=== PATIENT | female | born 1965 | race Caucasian/White ===

== ENCOUNTER → 2017-08-28 09:32 | Outpatient (CLI) | payer OTHER | END | disposition home or self-care (01) | LOC: LAB 09:32 | DX: I10 Essential (primary) hypertension (principal); E11.65 Type 2 diabetes mellitus with hyperglycemia; E78.00 Pure hypercholesterolemia, unspecified; E03.8 Other specified hypothyroidism; N39.0 Urinary tract infection, site not specified ==

== ENCOUNTER → 2017-08-28 | Outpatient (CLI) | payer OTHER ==
[~2017-08-28] MED LIST: ACIDOPHILUS1 EAC2 PO; AMOX1TAB12 PO; AVAPRO150 MG PO; CARAFATE1 GM PO; CEFTIN250 MG PO; DOLOGESIC CAPSU1 CAP PO; GLIPIZIDE; GLUCOTROL10 MG; HYZAAR 100-12.1 EACH; HYZAAR 100/25 T1 TAB PO; JANUMET 50-1,01 EACH; PROTONIX40 MG PO; SINGULAIR 10MG10 MG PO; SYMBICORT 16010.2 GM IH; SYNTHROID100 MCG; ZANTAC150 MG PO; ZOFRAN8 MG PO; [UNRECOGNIZED DRUG - OTHER]; [UNRECOGNIZED DRUG - OTHER] IV
== END | disposition home or self-care (01) ==
LOC: MRI 10:15
DX: M54.5 Low back pain (principal)

== ENCOUNTER 2018-07-29 22:19 | Emergency (ER) | payer OTHER ==
[~2018-07-29] VITALS: Ht 160 cm; Wt 108.9 kg
[2018-07-30] MEDS ORDERED: PYRIDIUM DS200 MG PO (06:54)
[2018-07-30] MEDS ORDERED: CEFUROXIME500 MG PO (06:54)
[2018-07-30] MEDS ORDERED: DOLOGESIC 500-1 EACH PO (06:54)
== END 2018-07-30 07:19 | disposition home or self-care (01) ==
LOC: ER 22:19
DX: K57.90 Diverticulosis of intestine, part unspecified, without perforation or abscess without bleeding (principal); N39.0 Urinary tract infection, site not specified

== ENCOUNTER 2018-08-14 13:55 | Outpatient (CLI) | payer OTHER ==
[~2018-08-14 13:55] MED LIST changes: +CEFUROXIME500 MG PO; +DOLOGESIC 500-1 EACH PO; +PYRIDIUM DS200 MG PO
== END 2018-08-14 14:01 | disposition home or self-care (01) ==
LOC: SONOGRAMA 13:55
DX: N20.0 Calculus of kidney (principal)

== ENCOUNTER 2019-01-06 12:24 | Emergency (ER) | payer OTHER ==
[~2019-01-06] VITALS: Ht 160 cm; Wt 108.9 kg
== END 2019-01-06 22:35 | disposition home or self-care (01) ==
LOC: ER 12:24
DX: N23 Unspecified renal colic (principal)

== ENCOUNTER 2019-06-06 07:54 | Outpatient (CLI) | payer OTHER | END 2019-06-06 08:09 | disposition home or self-care (01) | LOC: MAMO-SONO 07:54 | DX: Z12.31 Encounter for screening mammogram for malignant neoplasm of breast (principal); Z87.898 Personal history of other specified conditions; N63.10 Unspecified lump in the right breast, unspecified quadrant; N63.20 Unspecified lump in the left breast, unspecified quadrant ==

== ENCOUNTER 2019-06-19 10:26 | Inpatient (IN) | payer OTHER ==
[~2019-06-19] VITALS: Ht 160 cm; Wt 109.8 kg
[2019-06-19] MEDS ORDERED: AMLODIPINE-OLM1 EACH PO (10:56)
[2019-06-19] MEDS ORDERED: HORIZANT300 MG PO (10:56)
[2019-06-19] MEDS ORDERED: GLUMETZA500 MG PO (10:57)
[2019-06-19] MEDS ORDERED: OSTERA TABLET1 EACH PO (10:57)
[2019-06-19] MEDS ORDERED: ATACAND32 MG PO (10:58)
[2019-06-19] MEDS ORDERED: CRESTOR10 MG PO (10:58)
[2019-06-19] MEDS ORDERED: SYNTHROID PO (10:59)
--- NOTE | 2019-06-19 11:00 | NUR ---
PTE REFIERE DOLOR ABDOMINOPENVICO DESDE HACE DOS SHORT Y HX DIVERTICULITIS. SE OBSERVA ALERTA, ORIENTADA X3, CONCIENTE. SE TRASLADA AL AREA DE OBSERVACION.
--- NOTE | 2019-06-19 13:48 | NUR ---
SE RECIBE PTE FEMENIA DE 53 YRS ALERTA CONCIENTE Y TRANQUILA EN COMPANIA DE FAMILIAR. PTE ES EVALUADA POR EL QUIEN ORDENA TRATAMIENTO LA CUAL; SE EJECUTA .S E MANTIENE BAJO OBSERACION
--- NOTE | 2019-06-19 14:59 | NUR ---
SE RECIBE PACIENTE ALERTA Y ORIENTADA EN L[place] BERNIE ESFERAS. SE OBSERVA VENOPUNCION LESLEY DE EDEMA Y ENROJECIMIENTO BAJANDO 0.9%NSS AT 100ML/HR. PACIENTE CON BARANDAS ELEVADAS. SE ORIENTA SOBRE CT SCAN PENDIENTE LA MISMA VERBALIZA ENTENDER. SIGNOS VITALES TOMADOS POR MR.COLON
[2019-06-24] MEDS ORDERED: PROBIOTIC ACID1.5 MG PO (16:38)
[2019-06-24] MEDS ORDERED: METRONIDAZOLE500 MG PO (16:38)
[2019-06-24] MEDS ORDERED: PROMETHAZINE W473 ML PO (16:40)
== END 2019-06-24 17:45 | disposition home or self-care (01) | DRG 392 ==
LOC: ER 10:26 → MEDJ 16:56 → SEC-K 16:56 → MEDJ 17:34
PROVIDERS: ADMIT Internal Medicine
PROC: 3E0F7GC Introduction of Other Therapeutic Substance into Respiratory Tract, Via Natural or Artificial Opening (ICD-10-PCS; principal; 2019-06-20)
PROC: 02HV33Z Insertion of Infusion Device into Superior Vena Cava, Percutaneous Approach (ICD-10-PCS; 2019-06-21)
DX: K57.32 Diverticulitis of large intestine without perforation or abscess without bleeding (principal); J44.1 Chronic obstructive pulmonary disease with (acute) exacerbation; J45.41 Moderate persistent asthma with (acute) exacerbation; I11.9 Hypertensive heart disease without heart failure; I87.2 Venous insufficiency (chronic) (peripheral); E66.09 Other obesity due to excess calories; E11.65 Type 2 diabetes mellitus with hyperglycemia; Z79.4 Long term (current) use of insulin

== ENCOUNTER 2019-09-04 10:34 | Inpatient (IN) | payer OTHER ==
[~2019-09-04] VITALS: Ht 162.6 cm; Wt 90.7 kg
[~2019-09-04 10:34] MED LIST changes: +AMLODIPINE-OLM1 EACH PO; +ATACAND32 MG PO; +CRESTOR10 MG PO; +GLUMETZA500 MG PO; +HORIZANT300 MG PO; +METRONIDAZOLE500 MG PO; +OSTERA TABLET1 EACH PO; +PROBIOTIC ACID1.5 MG PO; +PROMETHAZINE W473 ML PO; +SYNTHROID PO
[2019-09-04] MEDS ORDERED: METFORMIN HCL750 MG PO (11:11)
[2019-09-05] MEDS ORDERED: LEVO-T112 MCG PO (07:54)
[2019-09-05] MEDS ORDERED: AMLODIPINE BESY10 MG PO (07:55)
== END 2019-09-11 18:29 | disposition home or self-care (01) | DRG 193 ==
LOC: ER 10:34 → MEDJ 17:11 → SURH 09-11 13:31
PROVIDERS: ADMIT Internal Medicine
PROC: 3E0F7GC Introduction of Other Therapeutic Substance into Respiratory Tract, Via Natural or Artificial Opening (ICD-10-PCS; principal; 2019-09-04)
PROC: 4A033R1 Measurement of Arterial Saturation, Peripheral, Percutaneous Approach (ICD-10-PCS; 2019-09-04)
PROC: 4A12X4Z Monitoring of Cardiac Electrical Activity, External Approach (ICD-10-PCS; 2019-09-05)
PROC: CB2YYZZ Tomographic (Tomo) Nuclear Medicine Imaging of Respiratory System using Other Radionuclide (ICD-10-PCS; 2019-09-06)
PROC: 8E0ZXY6 Isolation (ICD-10-PCS; 2019-09-11)
DX: J15.7 Pneumonia due to Mycoplasma pneumoniae (principal); E11.00 Type 2 diabetes mellitus with hyperosmolarity without nonketotic hyperglycemic-hyperosmolar coma (NKHHC); J45.41 Moderate persistent asthma with (acute) exacerbation; N39.0 Urinary tract infection, site not specified; M79.7 Fibromyalgia; I10 Essential (primary) hypertension; E78.5 Hyperlipidemia, unspecified; K76.0 Fatty (change of) liver, not elsewhere classified; E66.9 Obesity, unspecified; Z03.818 Encounter for observation for suspected exposure to other biological agents ruled out

== ENCOUNTER 2021-05-01 09:53 | Emergency (ER) | payer OTHER ==
[~2021-05-01] VITALS: Ht 160 cm; Wt 99.8 kg
[~2021-05-01 09:53] MED LIST changes: +AMLODIPINE BESY10 MG PO; +LEVO-T112 MCG PO; +METFORMIN HCL750 MG PO
[2021-05-01] MEDS ORDERED: GLIMEPIRIDE4 MG (10:11)
[2021-05-01] MEDS ORDERED: SYNTHROID137 MCG PO (10:12)
[2021-05-01] MEDS ORDERED: NORFLEX100MG PO (12:41)
== END 2021-05-01 13:17 | disposition home or self-care (01) ==
LOC: ER 09:53
DX: M25.561 Pain in right knee (principal)

== ENCOUNTER 2021-06-14 03:17 | Inpatient (IN) | payer OTHER ==
[~2021-06-14] VITALS: Ht 121.9 cm; Wt 5.0 kg
[~2021-06-14 03:17] MED LIST changes: +GLIMEPIRIDE4 MG; +NORFLEX100MG PO; +SYNTHROID137 MCG PO
[2021-06-14] MEDS ORDERED: TRULICITY1.5 MG/0.5 (03:25)
[2021-06-21] MEDS ORDERED: LANTUS SOL100 UNIT/1 SUBCUTANEO (08:57)
[2021-06-21] MEDS ORDERED: INSULIN PEN NE1 EAC1 SUBCUTANEO (08:58)
[2021-06-21] MEDS ORDERED: ATACAND32 MG PO (08:59)
[2021-06-21] MEDS ORDERED: PROTONIX40 MG PO (09:00)
[2021-06-21] MEDS ORDERED: INTESTINEX680 M1 PO (09:00)
[2021-06-21] MEDS ORDERED: PEPCID AC20 MG PO (09:01)
== END 2021-06-21 09:32 | disposition home or self-care (01) | DRG 440 ==
LOC: ER 03:17 → MEDI 09:25
PROVIDERS: ADMIT Internal Medicine; ATTEND Internal Medicine
PROC: 0DB68ZX Excision of Stomach, Via Natural or Artificial Opening Endoscopic, Diagnostic (ICD-10-PCS; principal; 2021-06-18)
PROC: 02HV33Z Insertion of Infusion Device into Superior Vena Cava, Percutaneous Approach (ICD-10-PCS; 2021-06-18)
PROC: BW21ZZZ Computerized Tomography (CT Scan) of Abdomen and Pelvis (ICD-10-PCS; 2021-06-18)
PROC: BF37ZZZ Magnetic Resonance Imaging (MRI) of Pancreas (ICD-10-PCS; 2021-06-18)
DX: K85.80 Other acute pancreatitis without necrosis or infection (principal); K31.7 Polyp of stomach and duodenum; R10.13 Epigastric pain; K29.60 Other gastritis without bleeding; D72.828 Other elevated white blood cell count; I11.9 Hypertensive heart disease without heart failure; E03.8 Other specified hypothyroidism; J45.998 Other asthma; E11.65 Type 2 diabetes mellitus with hyperglycemia; Z79.4 Long term (current) use of insulin; Z20.822 Contact with and (suspected) exposure to COVID-19

== ENCOUNTER 2021-07-08 14:20 | Emergency (ER) | payer OTHER ==
[~2021-07-08] VITALS: Ht 152.4 cm; Wt 103.4 kg
[~2021-07-08 14:20] MED LIST changes: +INSULIN PEN NE1 EAC1 SUBCUTANEO; +INTESTINEX680 M1 PO; +LANTUS SOL100 UNIT/1 SUBCUTANEO; +PEPCID AC20 MG PO; +TRULICITY1.5 MG/0.5
[2021-07-08] MEDS ORDERED: PRILOSEC10 MG (14:34)
[2021-07-08] MEDS ORDERED: HUMULIN 70100 UNIT/2 IJ (14:35)
== END 2021-07-08 20:02 | disposition home or self-care (01) ==
LOC: ER 14:20
DX: K57.92 Diverticulitis of intestine, part unspecified, without perforation or abscess without bleeding (principal); E11.9 Type 2 diabetes mellitus without complications; Z79.4 Long term (current) use of insulin; I10 Essential (primary) hypertension

== ENCOUNTER 2022-07-07 15:29 | Emergency (ER) | payer OTHER ==
[~2022-07-07] VITALS: Ht 160 cm; Wt 109.8 kg
[~2022-07-07 15:29] MED LIST changes: +HUMULIN 70100 UNIT/2 IJ; +PRILOSEC10 MG
[2022-07-07] MEDS ORDERED: DOLOGESIC 500-1 EACH PO (18:49)
== END 2022-07-07 19:30 | disposition home or self-care (01) ==
LOC: ER 15:29
DX: S93.402A Sprain of unspecified ligament of left ankle, initial encounter (principal); W19.XXXA Unspecified fall, initial encounter; Y93.01 Activity, walking, marching and hiking; Y92.9 Unspecified place or not applicable; Z88.6 Allergy status to analgesic agent; Z88.8 Allergy status to other drugs, medicaments and biological substances

== ENCOUNTER 2022-12-01 15:26 | Emergency (ER) | payer OTHER ==
[~2022-12-01] VITALS: Ht 160 cm; Wt 116.6 kg
[2022-12-01] MEDS ORDERED: PEPCID20 MG PO (23:12)
[2022-12-01] MEDS ORDERED: ZOFRAN8 MG PO (23:12)
== END 2022-12-01 23:58 | disposition home or self-care (01) ==
LOC: ER 15:26
DX: R10.84 Generalized abdominal pain (principal); K57.30 Diverticulosis of large intestine without perforation or abscess without bleeding; K76.0 Fatty (change of) liver, not elsewhere classified; Z88.6 Allergy status to analgesic agent; Z88.8 Allergy status to other drugs, medicaments and biological substances

== ENCOUNTER 2022-12-06 06:21 | Emergency (ER) | payer OTHER ==
[~2022-12-06] VITALS: Ht 160 cm; Wt 116.6 kg
[~2022-12-06 06:21] MED LIST changes: +PEPCID20 MG PO
[2022-12-06] MEDS ORDERED: METFORMIN HCL1000 M3 PO (06:37)
[2022-12-06] MEDS ORDERED: CARDURA8 MG PO (06:41)
[2022-12-06] MEDS ORDERED: ATACAND32 MG PO (06:42)
== END 2022-12-06 08:00 | disposition home or self-care (01) ==
LOC: ER 06:21
DX: J02.9 Acute pharyngitis, unspecified (principal); Z88.6 Allergy status to analgesic agent

== ENCOUNTER 2023-02-26 22:34 | Emergency (ER) | payer OTHER ==
[~2023-02-26] VITALS: Ht 160 cm; Wt 115.7 kg
[~2023-02-26 22:34] MED LIST changes: +CARDURA8 MG PO; +METFORMIN HCL1000 M3 PO
[2023-02-27 01:38] LABS: ABG PH 7.425 (7.35-7.45); ABG PO2 90.1 mmHg (80-100); ABG pCO2 41.2 mmHg (35-45); SaO2 97.2 %
[2023-02-27 01:39] LABS: BASE EXCESS 1.9 mmol/l; BICARBONATE 26.4 mmol/l (23-25); Tco2 27.7 mmol/l; allen test SATISFACTORY; o2 32 %; puncture site RADIAL RIGHT
[2023-02-27 02:31] LABS: HEMOGLOBIN 12.4 g/dL (12.0-15.00); MEAN CELL VOLUME 76.9 fL (80.00-100.00); MEAN CORPUSCULAR HEMOGLOBIN 25.1 pg (27.00-32.0); MEAN CORPUSCULAR HGB CONC 32.6 g/dl (32.0-36.0); PLATELET COUNT 270 K/uL (150-450); RED BLOOD COUNT 4.95 M/uL (4.00-6.00); RED CELL DISTRIBUTION WIDTH 15.8 % (11.5-14.5)
[2023-02-27 02:32] LABS: CALCIUM 9.1 mg/dL (8.5-10.1); CREATININE SERUM 0.84 mg/dL (0.55-1.02); GFR 70.39; POTASSIUM 3.95 mEq/L (3.5-5.1)
[2023-02-27] MEDS ORDERED: SYMBICORT 16010.2 GM IH (03:40)
[2023-02-27] MEDS ORDERED: OSEL75CA PO (03:40)
[2023-02-27] MEDS ORDERED: ZYNCOF 20-400120 ML PO (03:40)
[2023-02-27] MEDS ORDERED: XOPENEX HFA15 GM IH (03:40)
== END 2023-02-27 03:43 ==
LOC: ER 02-27 01:16
PROVIDERS: Emergency Medicine; General Practice
DX: J10.1 Influenza due to other identified influenza virus with other respiratory manifestations (principal); J40 Bronchitis, not specified as acute or chronic; Z20.822 Contact with and (suspected) exposure to COVID-19; Z88.1 Allergy status to other antibiotic agents; Z88.5 Allergy status to narcotic agent; Z88.6 Allergy status to analgesic agent

== ENCOUNTER 2023-07-26 07:16 | Outpatient (CLI) | payer OTHER ==
[~2023-07-26 07:16] MED LIST changes: +OSEL75CA PO; +XOPENEX HFA15 GM IH; +ZYNCOF 20-400120 ML PO
== END 2023-07-26 07:17 | disposition home or self-care (01) ==
LOC: NUCLEAR 07:16
PROVIDERS: ATTEND Internal Medicine
DX: E11.43 Type 2 diabetes mellitus with diabetic autonomic (poly)neuropathy (principal)